=== PATIENT | female | born 1985 | race Asian ===

== ENCOUNTER 2023-02-11 12:31 | Emergency (ER) | payer OTHER ==
[2023-02-11] MEDS ORDERED: Sodium Chloride 0.9% 1000 ML 1,000 ML IV STA (12:58)
--- NOTE | 2023-02-11 13:09 | ERPHSYRPT ---
- History of Present Illness Time Seen by Provider: 02/11/23 13:06 Source: patient Exam Limitations: no limitations Patient Subjective Stated Complaint: C/O HTN since yesterday. Patient states she just recently (, 02/06/23) had her idiopathic hypersomnia medication i ncreased. Triage Nursing Assessment: Patient ambulated back to ER without difficulties. No SOB at this time. Skin tone normal. MATIAS WNL. She is alert and oriented. Physician History: Patient is a 37-year-old female presents to our ED for evaluation of elevated blood pressure and shortness of breath. No chest pain. Symptoms started yesterday after her medication dose was changed. Patient states he is otherwise healthy. No past medical history. Patient experienced some heart palpitations. Patient is tachycardic during my evaluation symptoms are intermittent. Patient currently does not have shortness of breath. No heart palpitations. Blood pressure is slightly elevated. No other symptomology. Mother at bedside. They voiced no other complaints or concerns at this time. Portions of this note were created with voice recognition technology. There may be grammatical, spelling, punctuation or sound alike errors Timing/Duration: today, yesterday Modifying Factors: Improves With: nothing Associated Symptoms: denies symptoms Allergies/Adverse Reactions: amoxicillin Allergy (Verified 02/11/23 12:40) minocycline Allergy (Verified 02/11/23 12:40) Home Medications: Methylphenidate HCl [Methylphenidate ER] 1 tab PO DAILY 02/11/23 [History] Norgestrel-Ethinyl Estradiol [Elinest-28 Tablet] 1 tab PO DAILY 02/11/23 [History] Hx Tetanus, Diphtheria Vaccination/Date Given: Yes Hx Influenza Vaccination/Date Given: Yes Hx Pneumococcal Vaccination/Date Given: No Immunizations Up to Date: Yes Travel Risk - International Travel Have you traveled outside of the country in past 3 weeks: No - Coronavirus Screening Are you exhibiting any of the following symptoms?: No Close contact with a COVID-19 positive Pt in past 14-21 Days: No - Vaccine Status Have you recieved a Covid-19 vaccination: Yes 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 - Review of Systems Constitutional: No Symptoms, No Fever, No Chills Eyes: No Symptoms Ears, Nose, & Throat: No Symptoms Respiratory: No Symptoms, No Cough, No Dyspnea Cardiac: No Symptoms, No Chest Pain, No Edema, No Syncope Abdominal/Gastrointestinal: No Symptoms, No Abdominal Pain, No Nausea, No Vomiting, No Diarrhea Genitourinary Symptoms: No Symptoms, No Dysuria Musculoskeletal: No Symptoms, No Back Pain, No Neck Pain Skin: No Symptoms, No Rash Neurological: No Symptoms, No Dizziness, No Focal Weakness, No Sensory Changes Psychological: No Symptoms Endocrine: No Symptoms Hematologic/Lymphatic: No Symptoms Immunological/Allergic: No Symptoms All Other Systems: Reviewed and Negative - Past Medical History Pertinent Past Medical History: Yes Neurological History: No Pertinent History Cardiac History: No Pertinent History Respiratory History: Other Endocrine Medical History: No Pertinent History Musculoskeletal History: No Pertinent History Other Medical History: IDIOPATHIC HYPERSOMNIA - Past Surgical History Past Surgical History: Yes Female Surgical History: Other Other Surgical History: BREAST AUGMENTATION - Social History Smoking Status: Never smoker Exposure to second hand smoke: No Drug Use: none Patient Lives Alone: No - Female History Hx Last Menstrual Period: ONE WEEK AGO Hx Now: No - Nursing Vital Signs Nursing Vital Signs: Initial Vital Signs Pulse Rate 94 H 02/11/23 12:31 Respiratory Rate 21 02/11/23 12:31 Blood Pressure 181/121 02/11/23 12:31 O2 Sat by Pulse Oximetry 100 02/11/23 12:31 Pain Scale Pain Intensity 0 - Physical Exam General Appearance: no apparent distress, alert Eye Exam: PERRL/EOMI, eyes nml inspection Ears, Nose, Throat Exam: normal ENT inspection, TMs normal, pharynx normal, moist mucous membranes Neck Exam: normal inspection, non-tender, supple, full range of motion Respiratory Exam: normal breath sounds, lungs clear, airway intact, No respiratory distress Cardiovascular Exam: regular rate/rhythm, normal heart sounds, normal peripheral pulses Gastrointestinal/Abdomen Exam: soft, normal bowel sounds, No tenderness, No mass Back Exam: normal inspection, normal range of motion, No CVA tenderness, No vertebral tenderness Extremity Exam: normal inspection, normal range of motion, pelvis stable Neurologic Exam: alert, oriented x 3, cooperative, normal mood/affect, nml cerebellar function, nml station & gait, sensation nml, No motor deficits Skin Exam: normal color, warm, dry, No rash Lymphatic Exam: No adenopathy SpO2 Interpretation: normal SpO2: 99 O2 Delivery: Room Air - Course Nursing assessment & vital signs reviewed: Yes EKG Interpreted by Me: RATE (81), Sinus Rhythm, NORMAL AXIS, NORMAL INTERVALS - Radiology Exams Chest X-ray Interpretation: Teleradiologist Report (Negative chest x-ray) Ordered Tests: Active Orders 24 hr Category Date Time Status Product Steward STAT Care 02/11/23 12:59 Active EKG-ER Only STAT Care 02/11/23 12:58 Active IV Insertion STAT Care 02/11/23 12:58 Active Pulse Oximetry (ED) STAT Care 02/11/23 12:58 Active CHEST 1 VIEW (PORTABLE) Stat Exams 02/11/23 12:59 Completed CBC W DIFF Stat Lab 02/11/23 13:00 Completed CMP Stat Lab 02/11/23 13:00 Completed CULTURE,URINE Stat Lab 02/11/23 13:04 Received D-DIMER QUANTITATIVE Stat Lab 02/11/23 13:00 Completed HCG QUALITATIVE, URINE Stat Lab 02/11/23 13:04 Completed Lactic Acid Stat Lab 02/11/23 13:01 Completed NT PRO BNPII Stat Lab 02/11/23 13:00 Completed TROPONIN Q4H Lab 02/11/23 11:00 Completed TROPONIN Q4H Lab 02/11/23 17:00 Ordered TROPONIN Q4H Lab 02/11/23 21:00 Ordered TSH, 3RD Generation Stat Lab 02/11/23 13:00 Completed UA W/RFX UR CULTURE Stat Lab 02/11/23 13:04 Completed Medication Summary Discontinued Medications Generic Name Dose Route Start Last Admin Trade Name Freq PRN Reason Stop Dose Admin Clonidine 0.1 mg 02/11/23 15:01 Clonidine Hcl 0.1 Mg Tablet PO 02/11/23 15:02 STAT ONE Sodium Chloride 1,000 mls @ 999 mls/hr 02/11/23 12:58 02/11/23 14:05 Sodium Chloride 0.9% 1000 Ml IV 02/11/23 13:58 999 mls/hr .Q1H1M STA Administration Sodium Chloride Confirm 02/11/23 14:03 Sodium Chloride 0.9% 1000 Ml Administered 02/11/23 14:04 Dose 1,000 mls @ ud .ROUTE .STK-MED ONE Nitrofurantoin Macrocrystals 100 mg 02/11/23 14:03 02/11/23 14:05 Nitrofurantoin Macro 100 Mg Capsule PO 02/11/23 14:04 100 mg STAT ONE Administration Nitrofurantoin Macrocrystals Confirm 02/11/23 14:03 Nitrofurantoin Macro 100 Mg Capsule Administered 02/11/23 14:04 Dose 100 mg .ROUTE .[facility]-MED ONE Lab/Rad Data: Laboratory Result Diagrams 02/11/23 13:00 02/11/23 13:00 Laboratory Results 02/11/23 02/11/23 02/11/23 Range/Units 13:04 13:04 13:01 WBC (4.0-10.5) x10^3/uL RBC (4.1-5.4) x10^6/uL Hgb (12.0-16.0) g/dL Hct (35-47) % MCV (78-100) fL MCH (26-32) pg MCHC (32-36) g/dL RDW (11.5-14.0) % Plt Count (150-450) x10^3/uL MPV (7.5-11.0) fL Gran % (36.0-66.0) % Immature Gran % (Auto) (0.00-0.4) % Nucleat RBC Rel Count (0.00-0.1) % Eos # (Auto) (0-0.5) x10^3/uL Immature Gran # (Auto) (0.00-0.03) x10^3u/L Absolute Lymphs (auto) (1.0-4.6) x10^3/uL Absolute Monos (auto) (0.0-1.3) x10^3/uL Absolute Nucleated RBC (0.00-0.01) x10^3u/L Lymphocytes % (24.0-44.0) % Monocytes % (0.0-12.0) % Eosinophils % (0.00-5.0) % Basophils % (0.0-0.4) % Absolute Granulocytes (1.4-6.9) x10^3/uL Basophils # (0-0.4) x10^3/uL D-Dimer (0.0-0.50) mg/L Sodium (137-145) mmol/L Potassium (3.5-5.1) mmol/L Chloride (98-107) mmol/L Carbon Dioxide (22-30) mmol/L Anion Gap (5-15) MEQ/L BUN (7-17) mg/dL Creatinine (0.52-1.04) mg/dL Estimated GFR ML/MIN Glucose (74-106) mg/dL Lactic Acid 1.0 (0.4-2.0) Calcium (8.4-10.2) mg/dL Total Bilirubin (0.2-1.3) mg/dL AST (14-36) U/L ALT (0-35) U/L Alkaline Phosphatase (38-126) U/L Troponin I (0.000-0.034) ng/mL NT-Pro-B Natriuret Pep (<300) pg/mL Serum Total Protein (6.3-8.2) g/dL Albumin (3.5-5.0) g/dL TSH 3rd Generation (0.47-4.68) mIU/L Urine Color Yellow (Yellow) Urine Appearance Cloudy A (Clear) Urine pH 7.5 (4.6-8.0) Ur Specific Cuthbert 1.015 (1.005-1.030) Urine Protein Negative (Negative) Urine Glucose (UA) Negative (Negative) mg/dL Urine Ketones Trace A (Negative) Urine Blood Negative (Negative) Urine Nitrite Negative (Negative) Urine Bilirubin Negative (Negative) Urine Urobilinogen 1.0 A (0.2) mg/dL Ur Leukocyte Esterase Small A (Negative) U Hyaline Cast (Auto) NONE SEEN (0-2) /LPF Urine Microscopic RBC 0-2 (0-5) /HPF Urine Microscopic WBC 11-20 A (0-5) /HPF Ur Epithelial Cells Few (None Seen) /HPF Urine Bacteria None Seen (None Seen) /HPF Urine Culture Reflexed YES (NO) Urine HCG, Qual NEGATIVE (NEGATIVE) 02/11/23 02/11/23 02/11/23 Range/Units 13:00 13:00 13:00 WBC 6.0 (4.0-10.5) x10^3/uL RBC 4.44 (4.1-5.4) x10^6/uL Hgb 13.9 (12.0-16.0) g/dL Hct 42.3 (35-47) % MCV 95.3 (78-100) fL MCH 31.3 (26-32) pg MCHC 32.9 (32-36) g/dL RDW 11.9 (11.5-14.0) % Plt Count 255 (150-450) x10^3/uL MPV 9.7 (7.5-11.0) fL Gran % 57.8 (36.0-66.0) % Immature Gran % (Auto) 0.5 H (0.00-0.4) % Nucleat RBC Rel Count 0.0 (0.00-0.1) % Eos # (Auto) 0.13 (0-0.5) x10^3/uL Immature Gran # (Auto) 0.03 (0.00-0.03) x10^3u/L Absolute Lymphs (auto) 1.95 (1.0-4.6) x10^3/uL Absolute Monos (auto) 0.37 (0.0-1.3) x10^3/uL Absolute Nucleated RBC 0.00 (0.00-0.01) x10^3u/L Lymphocytes % 32.4 (24.0-44.0) % Monocytes % 6.1 (0.0-12.0) % Eosinophils % 2.2 (0.00-5.0) % Basophils % 1.0 (0.0-0.4) % Absolute Granulocytes 3.48 (1.4-6.9) x10^3/uL Basophils # 0.06 (0-0.4) x10^3/uL D-Dimer 0.40 (0.0-0.50) mg/L Sodium 139 (137-145) mmol/L Potassium 3.9 (3.5-5.1) mmol/L Chloride 105 (98-107) mmol/L Carbon Dioxide 26 (22-30) mmol/L Anion Gap 11.8 (5-15) MEQ/L BUN 10 (7-17) mg/dL Creatinine 0.67 (0.52-1.04) mg/dL Estimated GFR > 60.0 ML/MIN Glucose 97 (74-106) mg/dL Lactic Acid (0.4-2.0) Calcium 9.3 (8.4-10.2) mg/dL Total Bilirubin 0.60 (0.2-1.3) mg/dL AST 25 (14-36) U/L ALT 22 (0-35) U/L Alkaline Phosphatase 41 (38-126) U/L Troponin I (0.000-0.034) ng/mL NT-Pro-B Natriuret Pep 50.2 (<300) pg/mL Serum Total Protein 7.3 (6.3-8.2) g/dL Albumin 4.6 (3.5-5.0) g/dL TSH 3rd Generation 0.672 (0.47-4.68) mIU/L Urine Color (Yellow) Urine Appearance (Clear) Urine pH (4.6-8.0) Ur Specific Cuthbert (1.005-1.030) Urine Protein (Negative) Urine Glucose (UA) (Negative) mg/dL Urine Ketones (Negative) Urine Blood (Negative) Urine Nitrite (Negative) Urine Bilirubin (Negative) Urine Urobilinogen (0.2) mg/dL Ur Leukocyte Esterase (Negative) U Hyaline Cast (Auto) (0-2) /LPF Urine Microscopic RBC (0-5) /HPF Urine Microscopic WBC (0-5) /HPF Ur Epithelial Cells (None Seen) /HPF Urine Bacteria (None Seen) /HPF Urine Culture Reflexed (NO) Urine HCG, Qual (NEGATIVE) 02/11/23 Range/Units 11:00 WBC (4.0-10.5) x10^3/uL RBC (4.1-5.4) x10^6/uL Hgb (12.0-16.0) g/dL Hct (35-47) % MCV (78-100) fL MCH (26-32) pg MCHC (32-36) g/dL RDW (11.5-14.0) % Plt Count (150-450) x10^3/uL MPV (7.5-11.0) fL Gran % (36.0-66.0) % Immature Gran % (Auto) (0.00-0.4) % Nucleat RBC Rel Count (0.00-0.1) % Eos # (Auto) (0-0.5) x10^3/uL Immature Gran # (Auto) (0.00-0.03) x10^3u/L Absolute Lymphs (auto) (1.0-4.6) x10^3/uL Absolute Monos (auto) (0.0-1.3) x10^3/uL Absolute Nucleated RBC (0.00-0.01) x10^3u/L Lymphocytes % (24.0-44.0) % Monocytes % (0.0-12.0) % Eosinophils % (0.00-5.0) % Basophils % (0.0-0.4) % Absolute Granulocytes (1.4-6.9) x10^3/uL Basophils # (0-0.4) x10^3/uL D-Dimer (0.0-0.50) mg/L Sodium (137-145) mmol/L Potassium (3.5-5.1) mmol/L Chloride (98-107) mmol/L Carbon Dioxide (22-30) mmol/L Anion Gap (5-15) MEQ/L BUN (7-17) mg/dL Creatinine (0.52-1.04) mg/dL Estimated GFR ML/MIN Glucose (74-106) mg/dL Lactic Acid (0.4-2.0) Calcium (8.4-10.2) mg/dL Total Bilirubin (0.2-1.3) mg/dL AST (14-36) U/L ALT (0-35) U/L Alkaline Phosphatase (38-126) U/L Troponin I < 0.012 (0.000-0.034) ng/mL NT-Pro-B Natriuret Pep (<300) pg/mL Serum Total Protein (6.3-8.2) g/dL Albumin (3.5-5.0) g/dL TSH 3rd Generation (0.47-4.68) mIU/L Urine Color (Yellow) Urine Appearance (Clear) Urine pH (4.6-8.0) Ur Specific Cuthbert (1.005-1.030) Urine Protein (Negative) Urine Glucose (UA) (Negative) mg/dL Urine Ketones (Negative) Urine Blood (Negative) Urine Nitrite (Negative) Urine Bilirubin (Negative) Urine Urobilinogen (0.2) mg/dL Ur Leukocyte Esterase (Negative) U Hyaline Cast (Auto) (0-2) /LPF Urine Microscopic RBC (0-5) /HPF Urine Microscopic WBC (0-5) /HPF Ur Epithelial Cells (None Seen) /HPF Urine Bacteria (None Seen) /HPF Urine Culture Reflexed (NO) Urine HCG, Qual (NEGATIVE) - Progress Progress: improved Progress Note: Case discussed with Dr. Neville at [address] Silverio advises to give a dose of clonidine 0.1 mg today. He will see patient in the office tomorrow and reassess her blood pressure. Patient is a 37-year-old female presents to our emergency department for evalu ation of shortness of breath heart palpitations high blood pressure. Physical exam nonremarkable. Patient states her home medications were recently changed. Work-up essentially nonremarkable. EKG normal sinus rhythm. Chest x-ray nonremarkable. CBC CMP negative. D-dimer negative. Lactic acid normal. BNP within normal limits. Troponin negative. TSH within normal limits. Urinalysis significant for urinary tract infection. Patient received an oral dose from Macrobid in our ED. Patient received an oral dose of clonidine in our ED Dr. Silverio. normal saline administered due to elevated heart rate. Heart rate normalized. Dr. Silverio will see her in the morning to reassess her blood pres sure. Patient is to discontinue her home meds until advised otherwise by Dr. Silverio 02/11/23 15:03 Complexity of problems addressed is moderate acute complicated No critical care time Complex of data reviewed and analyzed is extensive. Test ordered test reviewed clinical correlation made between findings and imaging study and history and physical examination. Plan of care discussed with patient's primary care doctor who will follow patient tomorrow. Risk of complication and or risk of morbidity/mortality of patient management is moderate. A prescription for clonidine forwarded to patient's pharmacy. Vital stable. Blood pressure elevated. Time spent to discharge patient approximately 15 minutes. Plan of care established for shared decision making. No social determinants of health present to impede follow-up. Portions of this note were created with voice recognition technology. There may be grammatical, spelling, punctuation or sound alike errors 02/11/23 15:[address] Mable Will see patient in: office Counseled pt/family regarding: lab results, diagnosis, need for follow-up, rad results - Departure Departure Disposition: Home Clinical Impression: Hypertension Condition: Stable Critical Care Time: No Referrals: MARTHA SILVERIO MD [Primary Care Provider] - Follow up/PCP as directed Additional Instructions: Discharge/Care Plan EVERARDO ALMAZAN was seen on 02/11/23 in the Emergency Room. The patient was counseled regarding Diagnosis,Lab results, Imaging studies, need for follow up and when to return to the Emergency Room. Prescriptions given: Discharge Note I have spoken with the patient and/or caregivers. I have explained the patient's condition, diagnosis and treatment plan based on the information available to me at this time. I have answered the patient's and/or caregiver's questions and addressed any concerns. The patient and/or caregivers have as good understanding of the patient's diagnosis, condition and treatment plan as can be expected at this point. The vital signs have been stable. The patient's condition is stable and appropriate for discharge from the emergency department. The patient will pursue further outpatient evaluation with the primary care physician or other designated or consulting physician as outlined in the discharge instructions. The patient and/or caregivers are agreeable to this plan of care and follow-up instructions have been explained in detail. The patient and/or caregivers have received these instruction. The patient/and or caregivers are aware that any significant change in condition or worsening of symptoms should prompt an immediate return to this or the closest emergency department or call 911. Prescriptions: Nitrofurantoin Macro 100 mg [Macrobid 100MG Capsule] 100 mg PO BID 7 Days #14 cap
[2023-02-11 13:19] LABS: Absolute Neutrophil Ct (ANC) 3.48 x10^3/uL (1.4-6.9); Basophil (Absolute #) 0.06 x10^3/uL (0-0.4); Eosinophil % 2.2 % (0.00-5.0); Eosinophil (Absolute #) 0.13 x10^3/uL (0-0.5); Hematocrit 42.3 % (35-47); Hemoglobin 13.9 g/dL (12.0-16.0); IMMATURE GRAN # 0.03 x10^3u/L (0.00-0.03); IMMATURE GRAN % 0.5 % (0.00-0.4); Lymphocyte (Absolute #) 1.95 x10^3/uL (1.0-4.6); Lymphocytes % 32.4 % (24.0-44.0); Mean Cell Volume 95.3 fL (78-100); Mean Corpuscular Hemoglobin 31.3 pg (26-32); Mean Corpuscular Hgb Concent. 32.9 g/dL (32-36); Mean Platelet Volume 9.7 fL (7.5-11.0); Monocyte (Absolute #) 0.37 x10^3/uL (0.0-1.3); Monocytes % 6.1 % (0.0-12.0); Neutrophil % 57.8 % (36.0-66.0); Platelet Count 255 x10^3/uL (150-450); Red Blood Count 4.44 x10^6/uL (4.1-5.4); Red Cell Distribution Width 11.9 % (11.5-14.0)
[2023-02-11 13:29] LABS: HCG URINE TEST NEGATIVE (NEGATIVE)
[2023-02-11 13:34] LABS: Appearance Cloudy (Clear); Bacteria None Seen /HPF (None Seen); Bilirubin Negative (Negative); Blood Negative (Negative); Epithelial Cells Few /HPF (None Seen); Glucose, Urine Negative (Negative); Hyaline Casts NONE SEEN /LPF (0-2); Ketones Trace (Negative); Leukocyte Esterase Small (Negative); Nitrite Negative (Negative); Ph 7.5 (4.6-8.0); Protein,Urine Dip Negative (Negative); RBC 0-2 /HPF (0-5); Specific Gravity 1.015 (1.005-1.030)
[2023-02-11 13:46] LABS: ADD URINE CULTURE? YES (NO)
[2023-02-11 14:03] LABS: ALBUMIN 4.6 g/dL (3.5-5.0); ALKALINE PHOSPHATASE 41 U/L (38-126); ANION GAP 11.8 MEQ/L (5-15); BLOOD UREA NITROGEN 10 mg/dL (7-17); CHLORIDE 105 mmol/L (98-107); Calcium 9.3 mg/dL (8.4-10.2); Carbon Dioxide 26 mmol/L (22-30); Creatinine 1 0.67 mg/dL (0.52-1.04); EST GLOMERULAR FILTRATION RATE > 60.0 ML/MIN; Glucose 97 mg/dL (74-106); NT PRO BNPII 50.2 pg/mL (<300); Potassium 3.9 mmol/L (3.5-5.1); SGOT/AST 25 U/L (14-36); SGPT/ALT 22 U/L (0-35); SODIUM 139 mmol/L (137-145); TSH, 3RD Generation 0.672 mIU/L (0.47-4.68); Total Protein 7.3 g/dL (6.3-8.2)
[2023-02-11] MEDS ORDERED: Macrobid 100MG Capsule PO ONE (14:03)
[2023-02-11] MEDS ORDERED: Macrobid 100MG Capsule ONE (14:03)
[2023-02-11] MEDS ORDERED: Sodium Chloride 0.9% 1000 ML 1,000 ML ONE (14:03)
--- NOTE | 2023-02-11 14:07 | XRAY ---
CLINICAL HISTORY:sob COMPARISON:None TECHNIQUE:X-ray of the chest was performed in frontal projection. FINDINGS: The lungs are well aerated. No hydrothorax or pneumothorax seen. No fracture seen. There is no evidence of any focal area of consolidation. The hilar and pulmonary vasculature is normal. The heart size is within normal limits. The costophrenic angles are clear. IMPRESSION: X-ray chest is unremarkable. Electronically Signed by: Mikki Mansfield MD. (02/11/2023 13:06:24 PAIN MANAGEMENT PHYSICIAN)
[2023-02-11] MEDS ORDERED: CLONIDINE 0.1 MG TABLET PO ONE (15:01)
[2023-02-11] MEDS ORDERED: CLONIDINE 0.1 MG TABLET ONE (15:07)
[2023-02-11 15:45] VITALS: BP 164/106; PULSE 84; RESP 16; O2SAT 98
== END 2023-02-11 15:50 | disposition home or self-care (01) ==
LOC: ED 12:31
DX: I10 Essential (primary) hypertension (principal); R06.02 Shortness of breath; R00.2 Palpitations; Z79.899 Other long term (current) drug therapy
CPT/HCPCS: 36000; 36415; 71045; 80053; 81001; 81025; 83605; 83880; 84443; 84484; 85025; 85379; 87086; 93005; 93041; 94760; 96360; 99284; A9270-GY